=== PATIENT | female | born 2000 | race Caucasian/White ===

== ENCOUNTER 2024-09-13 08:12 | Outpatient (CLI) | payer BC | END 2024-09-13 08:13 | disposition home or self-care (01) | LOC: CSHSLEEP 08:12 | PROVIDERS: ATTEND Family Medicine | DX: G47.33 Obstructive sleep apnea (adult) (pediatric) (principal); E66.9 Obesity, unspecified; Z68.38 Body mass index [BMI] 38.0-38.9, adult; R06.83 Snoring | CPT/HCPCS: 95800 ==